=== PATIENT | female | born 1950 | race Hispanic/Latino ===

== ENCOUNTER 2017-09-09 04:10 | Emergency (ER) | payer MEDICARE ==
[2017-09-09 04:10] VITALS: BMI 35.7
[2017-09-09] MEDS ORDERED: Sodium Chloride 0.9% 1,000 ML IV ONE (04:28)
--- NOTE | 2017-09-09 04:28 | C.PDOC ---
History Of Present Illness patient whose past medical history includes COPD and CHF, presents to the ED complaining of right lower abdominal pain since earlier today at 07:30 PM associated with nausea. Patient denies vomiting, diarrhea, chest pain, shortness of breath, or other complaints. pt is on HD on -- Time Seen by Provider: 09/09/17 04:25 Chief Complaint (Nursing): Abdominal Pain History Per: Patient History/Exam Limitations: no limitations Onset/Duration Of Symptoms: Hrs Current Symptoms Are (Timing): Still Present Context: Other Severity: Moderate Pain Scale Rating Of: 4 Location Of Pain/Discomfort: RLQ Radiation Of Pain To:: None Quality Of Discomfort: Aching Exacerbating Factors: None Alleviating Factors: None Last Bowel Movement: Yesterday Recent travel outside of the [place]: No Additional History Per: Family Abnormal Vaginal Bleeding: No Past Medical History Reviewed: Historical Data, Nursing Documentation, Vital Signs Vital Signs: Last Vital Signs Temp 98.1 F 09/09/17 04:20 Pulse 90 09/09/17 04:20 Resp 18 09/09/17 04:20 BP 175/79 H 09/09/17 04:20 Pulse Ox 98 09/09/17 04:46 - Medical History PMH: Anemia, Anxiety, Atrial Fibrillation, CHF, COPD, Diabetes, Diverticulitis, HTN, Pneumonia (2011), End Stage Renal Disease, Chronic Kidney Disease, Sleep Apnea (on CPAP) - [facility] Procedures ASSISTANCE WITH RESPIRATORY VENTILATION, <24 HRS, CPAP (08/10/15) EXCISION OF DESCENDING COLON, ENDO, DIAGN (07/06/15) EXCISION OF RECTUM, ENDO, DIAGN (07/06/15) EXCISION OF SIGMOID COLON, ENDO (07/06/15) EXCISION OF STOMACH, ENDO, DIAGN (07/06/15) FLUOROSCOPY OF LEFT JUGULAR VEINS, GUIDANCE (07/06/15) HEMODIALYSIS (05/15/14) INFLUENZA VACCINATION (04/25/14) INSERT INFUSION DEV IN L INT JUGULAR VEIN, PERC (07/06/15) NEBULIZER THERAPY (05/15/14) NON-INVASIVE MECHANICAL VENTILATION (08/06/14) OCCUPATIONAL THERAPY (05/15/14) PERFORMANCE OF URINARY FILTRATION, MULTIPLE (07/06/15) PERFORMANCE OF URINARY FILTRATION, SINGLE (08/10/15) PHYSICAL THERAPY NEC (05/15/14) VENOUS CATHETERIZATION NEC (04/25/14) Family History: States: Unknown Family Hx - Social History Hx Tobacco Use: No Hx Alcohol Use: No Hx Substance Use: No - Immunization History Hx Tetanus Toxoid Vaccination: No Hx Influenza Vaccination: Yes Hx Pneumococcal Vaccination: Yes Review Of Systems Constitutional: Negative for: Fever ENT: Negative for: Throat Swelling Cardiovascular: Negative for: Chest Pain Respiratory: Negative for: Shortness of Breath Gastrointestinal: Positive for: Nausea, Abdominal Pain (right lower abdominal). Negative for: Vomiting Genitourinary: Negative for: Dysuria Musculoskeletal: Negative for: Back Pain Neurological: Negative for: Dizziness Physical Exam - Physical Exam Appears: Non-toxic, No Acute Distress Skin: Warm, Dry, Other (psoriasis) Head: Normacephalic Eye(s): bilateral: Normal Inspection Oral Mucosa: Moist Neck: Supple Chest: Symmetrical Cardiovascular: Rhythm Regular, No Murmur Respiratory: No Rales, No Rhonchi, No Wheezing Gastrointestinal/Abdominal: Bowel Sounds (active), Tenderness (right lower quadrant ), Distention, No Guarding, Hernia (large) Extremity: Normal ROM, Other (left forearm HD graft with good thrill and bruit) Extremity: Bilateral: Atraumatic Neurological/Psych: Oriented x3, Normal Speech, Normal Motor, Normal Sensation ED Course And Treatment - Laboratory Results Result Diagrams: 09/09/17 05:17 09/09/17 05:17 ECG: Interpreted By Me, Viewed By Me O2 Sat by Pulse Oximetry: 98 (room air) Pulse Ox Interpretation: Normal Disposition Counseled Patient/Family Regarding: Studies Performed, Diagnosis - Disposition Disposition Time: 04:25 Condition: FAIR Forms: [facility] (Faroese) - Clinical Impression Clinical Impression: Abdominal pain, ESRD (end stage renal disease) on dialysis - Scribe Statement The provider has reviewed the documentation as recorded by the Scribe Scribe Attestation: Zehra Brito MD Scribe Attestation: All medical record entries made by the Scribe were at my direction and personally dictated by me. I have reviewed the chart and agree that the record accurately reflects my personal performance of the history, physical exam, medical decision making, and the department course for this patient. I have also personally directed, reviewed, and agree with the discharge instructions and disposition. Physician Patient Turnover Patient Signed Over To: Lexi Araujo Handoff Comments: pending ct , re-evaluation and disposition
[2017-09-09 05:20] LABS: BASO # 0.1 K/uL (0.0-0.2); BASO % 0.9 % (0.0-2.0); EOS # 0.1 K/uL (0.0-0.7); EOS % 1.2 % (0.0-4.0); HEMOGLOBIN 11.2 g/dL (11.0-16.0); LYMPH % 10.1 % (20.0-40.0); MEAN CORPUSCULAR HEMOGLOBIN 32.5 pg (27.0-31.0); MEAN CORPUSCULAR HGB CONC 34.2 g/dL (33.0-37.0); MEAN PLATELET VOLUME 8.4 fL (7.2-11.7); MONO # 0.5 K/uL (0.0-0.8); MONO % 4.7 % (0.0-10.0); NEUT # 7.9 K/uL (1.8-7.0); NEUT % 83.1 % (50.0-75.0); RBC 3.46 Mil/uL (3.80-5.20); RED CELL DISTRIBUTION WIDTH 15.1 % (11.5-14.5); WHITE BLOOD COUNT 9.5 K/uL (4.8-10.8)
[2017-09-09] MEDS ORDERED: Sodium Chloride 0.9% 1,000 ML ONE (05:21)
[2017-09-09 05:28] LABS: PROTHROMBIN TIME 11.4 SECONDS (9.7-12.2)
[2017-09-09 05:36] LABS: ALB/GLOB RATIO 1.3 (1.0-2.1); ALBUMIN 4.3 g/dL (3.5-5.0); CALCIUM 8.9 mg/dl (8.6-10.4)
--- NOTE | 2017-09-09 07:41 | CT ---
EXAM: CT Abdomen and Pelvis Without Intravenous Contrast EXAM DATE/TIME: 09/09/2017 6:04 AM CLINICAL HISTORY: 67 years old, female; Pain; Abdominal pain; Localized; Right lower quadrant (rlq); Additional info: Rlq pain TECHNIQUE: Axial computed tomography images of the abdomen and pelvis without intravenous contrast. All CT scans at this facility use one or more dose reduction techniques, viz.: automated exposure control; ma/kV adjustment per patient size (including targeted exams where dose is matched to indication; i.e. head); or iterative reconstruction technique. Coronal and sagittal reformatted images were created and reviewed. COMPARISON: CT - ABD PELVIS W/O PO OR IV CONT 2015-08-09 22:36 FINDINGS: There is a small left pleural effusion with thin surrounding soft tissue rim and a small amount of calcification. As discussed in the prior report, the presence of a thin soft tissue rim is often associated with empyema. Clinical correlation recommended. The appearance is similar to prior study. There is a small amount of left lower lung consolidation with calcification also similar to prior study. There is a trace amount of right lower lung atelectasis decreased since prior study. There is a small pericardial effusion incompletely imaged however similar to prior study. The spleen is again seen to be enlarged. The liver, gallbladder, and pancreas appear grossly normal on this non-contrast study. There is mild bilateral perinephric stranding. There is fullness of the right renal pelvis new since prior. There are non obstructing renal calculi. There is a 3 mm calcification along the posterior aspect of the urinary bladder at midline new since prior likely a recently passed right sided calculi given the right pelvic dilation. Colonic diverticulosis is present. A normal appendix is identified axial images 112-125. IMPRESSION: Left pleural fluid and left lower lung consolidation similar to prior. Pericardial effusion similar to prior. Fullness of the right renal pelvis new since prior. Calculi along the posterior urinary bladder at midline, new since prior, likely recently passed.
[2017-09-09 08:23] VITALS: BP 131/61; PULSE 91; RESP 20; TEMP 98; O2SAT 96
== END 2017-09-09 08:50 | disposition home or self-care (01) ==
LOC: C.ER 04:10
DX: R10.31 Right lower quadrant pain (principal); N18.6 End stage renal disease; Z99.2 Dependence on renal dialysis
CPT/HCPCS: 74176; 80053; 83690; 85025; 85610; 85730; 96361; 96374; 96375; 99284; J2405; J7040

== ENCOUNTER 2018-06-19 05:49 | Inpatient (IN) | payer MEDICARE, BC ==
--- NOTE | 2018-06-19 05:58 | C.PDOC ---
History Of Present Illness Patient presents to the ER with a complaint of SOB for the past 2 days. She is a Sunday dialysis patient. Patient uses bipap at home, states she felt congested which prompted visit. She is currently speaking in complete sentences. Initially she was satting 88-89% on room air but with 2 liters o2 she is back at 100%. Denies chest pain, nausea, or vomiting. Time Seen by Provider: 06/19/18 05:58 History Per: Patient History/Exam Limitations: no limitations Onset/Duration Of Symptoms: Days (2) Current Symptoms Are (Timing): Still Present Initiating Event: Other (Not known) Quality: Other (Congested) Current Respiratory Medications: See Home Med List Severity: Moderate Pain Scale Rating Of: 4 Associated Symptoms: denies: Chest Pain, Other (Nausea, Vomiting) Recent travel outside of the [place]: No Past Medical History Reviewed: Historical Data, Nursing Documentation, Vital Signs - Medical History PMH: Anemia, Anxiety, Atrial Fibrillation, CHF, COPD, Diabetes, Diverticulitis, HTN, Pneumonia (2011), End Stage Renal Disease, Chronic Kidney Disease, Sleep Apnea (on CPAP) - [facility] Procedures ASSISTANCE WITH RESPIRATORY VENTILATION, <24 HRS, CPAP (08/10/15) EXCISION OF DESCENDING COLON, ENDO, DIAGN (07/06/15) EXCISION OF RECTUM, ENDO, DIAGN (07/06/15) EXCISION OF SIGMOID COLON, ENDO (07/06/15) EXCISION OF STOMACH, ENDO, DIAGN (07/06/15) FLUOROSCOPY OF LEFT JUGULAR VEINS, GUIDANCE (07/06/15) HEMODIALYSIS (05/15/14) INFLUENZA VACCINATION (04/25/14) INSERT INFUSION DEV IN L INT JUGULAR VEIN, PERC (07/06/15) NEBULIZER THERAPY (05/15/14) NON-INVASIVE MECHANICAL VENTILATION (08/06/14) OCCUPATIONAL THERAPY (05/15/14) PERFORMANCE OF URINARY FILTRATION, MULTIPLE (07/06/15) PERFORMANCE OF URINARY FILTRATION, SINGLE (08/10/15) PHYSICAL THERAPY NEC (05/15/14) VENOUS CATHETERIZATION NEC (04/25/14) Family History: States: No Known Family Hx - Social History Hx Tobacco Use: No Hx Alcohol Use: No Hx Substance Use: No - Immunization History Hx Tetanus Toxoid Vaccination: No Hx Influenza Vaccination: Yes Hx Pneumococcal Vaccination: Yes Review Of Systems Constitutional: Negative for: Fever, Chills Cardiovascular: Negative for: Chest Pain, Palpitations Respiratory: Positive for: Shortness of Breath, Other (Congested) Gastrointestinal: Negative for: Nausea, Vomiting Neurological: Negative for: Weakness, Numbness Physical Exam - Physical Exam Appears: Non-toxic Skin: Warm, Dry Head: Normacephalic Eye(s): bilateral: Normal Inspection Oral Mucosa: Moist Neck: Supple Chest: Symmetrical, No Tenderness Cardiovascular: Rhythm Regular Respiratory: Decreased Breath Sounds, Rales (At the bases), No Rhonchi, No Wheezing Gastrointestinal/Abdominal: Bowel Sounds (Good), Soft, No Tenderness, Other (Obese) Back: Normal Inspection Extremity: Pedal Edema (Trace), Other (Dialysis graft to left forearm with good thrill and bruit) Extremity: Bilateral: Atraumatic Pulses: Left Dorsalis Pedis: Normal, Right Dorsalis Pedis: Normal Neurological/Psych: Oriented x3 Gait: Steady ED Course And Treatment - Laboratory Results Result Diagrams: 06/19/18 06:27 06/19/18 06:27 ECG: Interpreted By Me, Viewed By Me ECG Rhythm: Sinus Rhythm (91), Nonspecific Changes O2 Sat by Pulse Oximetry: 89 Pulse Ox Interpretation: Abnormal (placed on 2l nc) - Radiology CXR: Interpreted by Me, Viewed By Me CXR Interpretation: Yes: Cardiomegaly, Other (left effusion, mild vasc congestion). No: Infiltrates, Fracture Progress Note: EKG, blood work, CXR, urinalysis, and flu swab ordered. Disposition Discussed With Dr.: Nii Lockett Comment: accepted the pt on his service and took over the care at 6:49 AM Doctor Will See Patient In The: Hospital Counseled Patient/Family Regarding: Studies Performed, Diagnosis - Disposition Referrals: Nii Lockett MD [Primary Care Provider] - Disposition: HOSPITALIZED Disposition Time: 05:58 Condition: FAIR - POA Present On Arrival: Poor Glycemic Control - Clinical Impression Clinical Impression: Dyspnea, Congestive heart failure, ESRD needing dialysis - Scribe Statement The provider has reviewed the documentation as recorded by the Scribe Tod Yip All medical record entries made by the Scribe were at my direction and personally dictated by me. I have reviewed the chart and agree that the record accurately reflects my personal performance of the history, physical exam, medical decision making, and the department course for this patient. I have also personally directed, reviewed, and agree with the discharge instructions and disposition.
[2018-06-19 05:59] VITALS: BMI 36.0
[2018-06-19 06:30] LABS: BASO # 0.1 K/uL (0.0-0.2); BASO % 0.8 % (0.0-2.0); EOS # 0.1 K/uL (0.0-0.7); EOS % 1.4 % (0.0-4.0); HEMOGLOBIN 9.4 g/dL (11.0-16.0); LYMPH % 14.4 % (20.0-40.0); MEAN CELL VOLUME 101.4 fL (81.0-99.0); MEAN CORPUSCULAR HEMOGLOBIN 32.8 pg (27.0-31.0); MEAN CORPUSCULAR HGB CONC 32.3 g/dL (33.0-37.0); MEAN PLATELET VOLUME 8.6 fL (7.2-11.7); MONO # 0.4 K/uL (0.0-0.8); NEUT # 5.5 K/uL (1.8-7.0); NEUT % 77.4 % (50.0-75.0); NRBC % 0.1 % (0.0-2.0); RBC 2.87 Mil/uL (3.80-5.20); RED CELL DISTRIBUTION WIDTH 16.4 % (11.5-14.5); WHITE BLOOD COUNT 7.1 K/uL (4.8-10.8)
[2018-06-19 06:38] LABS: INR 1.1; PROTHROMBIN TIME 12.5 SECONDS (9.7-12.2)
[2018-06-19 06:45] LABS: ALB/GLOB RATIO 1.5 (1.0-2.1); ALBUMIN 4.1 g/dL (3.5-5.0); CALCIUM 8.6 mg/dl (8.6-10.4)
[2018-06-19 06:51] LABS: ABG ALLEN TEST POS; ARTERIAL BLOOD GAS O2 SAT 97.9 % (95-98); ARTERIAL BLOOD GAS PCO2 64 mm/Hg (35-45); ARTERIAL BLOOD GAS PH 7.26 (7.35-7.45); ARTERIAL BLOOD GAS PO2 124 mm/Hg (80-100); ARTERIAL BLOOD GAS TCO2 30.7 mmol/L (22-28)
[2018-06-19 06:56] LABS: TROPONIN I 0.044 ng/mL (0.00-0.120)
--- NOTE | 2018-06-19 07:52 | RAD ---
Chest x-ray single frontal view HISTORY: Shortness of breath. COMPARISON: 08/09/2015 Findings: Moderate venous congestion. Small to moderate left pleural effusion. Patchy increased markings at the lung bases. Nodular density at the lateral aspect of the right midlung zone may represent confluence shadows with ribs and vessels. Biapical pleural thickening. Cardiomegaly. Atherosclerotic calcification at the aortic knob. Degenerative changes in the spine and shoulders. Impression: Moderate venous congestion. Small to moderate left pleural effusion. Patchy increased markings at the lung bases. Nodular density at the lateral aspect of the right midlung zone may represent confluence shadows with ribs and vessels. Biapical pleural thickening. Cardiomegaly. Atherosclerotic calcification at the aortic knob.
[2018-06-19] MEDS ORDERED: TADALAFIL 40 MG PO SCH (10:00)
[2018-06-19] MEDS ORDERED: Paricalcitol 2 mcg/ml Inj IV ONE (10:30)
[2018-06-19] MEDS ORDERED: Epoetin Alfa 10,000 unit/ml Dialysis IV ONE (10:30)
--- NOTE | 2018-06-19 11:59 | CP.PCM.CON ---
History of Present Illness - History of Present Illness History of Present Illness: pt is seen and examined, full consult is dictated #[id number] seen in hd, uf goal is 3- 3.5 lit Past Patient History - Infectious Disease Hx of Infectious Diseases: None - Past Medical History & Family History Past Medical History?: Yes - Past Social History Smoking Status: Former Smoker - CARDIAC Hx Cardiac Disorders: Yes Hx Atrial Fibrillation: Yes Hx Congestive Heart Failure: Yes Hx Hypertension: Yes - PULMONARY Hx Respiratory Disorders: Yes Hx Chronic Obstructive Pulmonary Disease (COPD): Yes Hx Pneumonia: Yes (2011) Hx Sleep Apnea: Yes (on CPAP) - NEUROLOGICAL Hx Neurological Disorder: No - HEENT Hx HEENT Problems: Yes Hx Cataracts: Yes (Bilateral cataract sx 2012) Other/Comment: Use glasses for reading/driving - RENAL Hx Chronic Kidney Disease: Yes Hx Dialysis: Yes Type of Dialysis Access: left forearm A/V shunt Date of Last Dialysis Treatment: 06/17/18 Hx Kidney Stones: Yes Hx Pyelonephritis: Yes Hx Renal Failure: Yes - ENDOCRINE/METABOLIC Hx Endocrine Disorders: Yes Hx Diabetes Mellitus Type 2: Yes - HEMATOLOGICAL/ONCOLOGICAL Hx Blood Disorders: Yes Hx Anemia: Yes - INTEGUMENTARY Hx Dermatological Problems: Yes Other/Comment: Rash on lower back just above sacrum - MUSCULOSKELETAL/RHEUMATOLOGICAL Hx Musculoskeletal Disorders: No Hx Falls: No - GASTROINTESTINAL Hx Gastrointestinal Disorders: Yes Hx Diverticulitis: Yes - GENITOURINARY/GYNECOLOGICAL Hx Genitourinary Disorders: Yes (renal failure started hd 04/27/14 at [facility]) - PSYCHIATRIC Hx Psychophysiologic Disorder: Yes Hx Anxiety: Yes (2004 when ) Hx Substance Use: No - SURGICAL HISTORY Hx Surgeries: Yes Hx Eye Surgery: Yes Hx Vascular Access Device: Yes (LEFT ARM) Other/Comment: Thoracentesis -2011; Herniated disk surgery 2003. AV Shunt - ANESTHESIA Hx Anesthesia: Yes Hx Anesthesia Reactions: No Hx Malignant Hyperthermia: No Meds Allergies/Adverse Reactions: Allergies Allergy/AdvReac Type Severity Reaction Status Date / Time penicillin V Allergy SHORTNESS Verified 06/19/18 05:59 OF BREATH shellfish derived Allergy SHORTNESS Verified 06/19/18 05:59 OF BREATH - Medications Medications: Current Medications Albuterol/Ipratropium (Duoneb 3 Mg/0.5 Mg (3 Ml) Ud) 3 ml INH RQ6 HUANG Heparin Sodium (Porcine) (Heparin) 5,000 units SC Q12 [facility] Home Med (Novolog Flexpen) 25 units SQ TID [facility] Home Med (Tadalafil [Adcirca]) 40 mg PO DAILY [facility] Azithromycin 500 mg/ Sodium (Chloride) 250 mls @ 250 mls/hr IVPB Q24H [facility]; Protocol Insulin Detemir (Levemir) 35 unit SC HS [facility] Pneumococcal Polyvalent Vaccine (Pneumovax 23 Vaccine) 0.5 ml IM .ONCE ONE Stop: 06/21/18 14:01 Rosuvastatin Calcium (Crestor) 10 mg PO DAILY [facility] Results - Vital Signs Recent Vital Signs: Last Vital Signs Temp 98 F 06/19/18 09:30 Pulse 84 06/19/18 09:30 Resp 17 06/19/18 11:00 BP 112/50 L 06/19/18 11:00 Pulse Ox 100 06/19/18 11:00 - Labs Result Diagrams: 06/19/18 06:27 06/19/18 06:27 Labs: Laboratory Results - last 24 hr 06/19/18 06/19/18 06/19/18 06:00 06:27 06:27 WBC 7.1 RBC 2.87 L Hgb 9.4 L Hct 29.1 L MCV 101.4 H D MCH 32.8 H MCHC 32.3 L RDW 16.4 H Plt Count 113 L MPV 8.6 Neut % (Auto) 77.4 H Lymph % (Auto) 14.4 L [place] % (Auto) 6.0 Eos % (Auto) 1.4 Baso % (Auto) 0.8 Neut # (Auto) 5.5 Lymph # (Auto) 1.0 [place] # (Auto) 0.4 Eos # (Auto) 0.1 Baso # (Auto) 0.1 PT 12.5 H INR 1.1 APTT 34 Puncture Site pCO2 pO2 HCO3 ABG pH ABG Total CO2 ABG O2 Saturation ABG Base Excess [place] Test ABG Potassium Glucose Lactate Liter Flow Sodium Potassium Chloride Carbon Dioxide Anion Gap BUN Creatinine Est GFR ( Amer) Est GFR (Non-Af Amer) POC Glucose (mg/dL) Random Glucose Calcium Magnesium Total Bilirubin AST ALT Alkaline Phosphatase Troponin I NT-Pro-B Natriuret Pep Total Protein Albumin Globulin Albumin/Globulin Ratio Arterial Blood Potassium Influenza Typ A,B (EIA) Negative for flu a/b 1206/19/18 06/19/18 06:27 06:30 11:41 WBC RBC Hgb Hct MCV MCH MCHC RDW Plt Count MPV Neut % (Auto) Lymph % (Auto) [place] % (Auto) Eos % (Auto) Baso % (Auto) Neut # (Auto) Lymph # (Auto) [place] # (Auto) Eos # (Auto) Baso # (Auto) PT INR APTT Puncture Site R rad pCO2 64 H pO2 124 H HCO3 25.0 ABG pH 7.26 L ABG Total CO2 30.7 H ABG O2 Saturation 97.9 ABG Base Excess 0.1 [place] Test Pos ABG Potassium 4.2 Glucose 113 H Lactate 0.7 Liter Flow 3.0 Sodium 138 140.0 Potassium 4.4 Chloride 98 103.0 Carbon Dioxide 24 Anion Gap 20 BUN 42 H Creatinine 6.8 H Est GFR ( Amer) 7 Est GFR (Non-Af Amer) 6 POC Glucose (mg/dL) 130 H Random Glucose 118 H Calcium 8.6 Magnesium 2.3 Total Bilirubin 0.8 AST 13 L ALT 17 Alkaline Phosphatase 147 H D Troponin I 0.0440 NT-Pro-B Natriuret Pep 67751 H Total Protein 6.8 Albumin 4.1 Globulin 2.7 Albumin/Globulin Ratio 1.5 Arterial Blood Potassium 4.2 Influenza Typ A,B (EIA)
[2018-06-19] MEDS: Azithromycin 500 MG in Sodium Chloride 0.9% 250 ML IVPB SCH (12:59)
[2018-06-19] MEDS: Albuterol-Ipratrop 3 mg / 0.5 (3 ml) UD INH SCH ×2 (13:38→19:31)
[2018-06-19] MEDS: (Novolog) Insulin Aspart, Recombinant 100 u/ml 10 ml vial SC SCH (17:36)
--- NOTE | 2018-06-19 18:12 | CP.PCM.HP ---
Past Patient History - Infectious Disease Hx of Infectious Diseases: None - Past Medical History & Family History Past Medical History?: Yes - Past Social History Smoking Status: Former Smoker - CARDIAC Hx Cardiac Disorders: Yes Hx Atrial Fibrillation: Yes Hx Congestive Heart Failure: Yes Hx Hypertension: Yes - PULMONARY Hx Respiratory Disorders: Yes Hx Chronic Obstructive Pulmonary Disease (COPD): Yes Hx Pneumonia: Yes (2011) Hx Sleep Apnea: Yes (on CPAP) - NEUROLOGICAL Hx Neurological Disorder: No - HEENT Hx HEENT Problems: Yes Hx Cataracts: Yes (Bilateral cataract sx 2012) Other/Comment: Use glasses for reading/driving - RENAL Hx Chronic Kidney Disease: Yes Hx Dialysis: Yes Type of Dialysis Access: left forearm A/V shunt Date of Last Dialysis Treatment: 06/17/18 Hx Kidney Stones: Yes Hx Pyelonephritis: Yes Hx Renal Failure: Yes - ENDOCRINE/METABOLIC Hx Endocrine Disorders: Yes Hx Diabetes Mellitus Type 2: Yes - HEMATOLOGICAL/ONCOLOGICAL Hx Blood Disorders: Yes Hx Anemia: Yes - INTEGUMENTARY Hx Dermatological Problems: Yes Other/Comment: Rash on lower back just above sacrum - MUSCULOSKELETAL/RHEUMATOLOGICAL Hx Musculoskeletal Disorders: No Hx Falls: No - GASTROINTESTINAL Hx Gastrointestinal Disorders: Yes Hx Diverticulitis: Yes - GENITOURINARY/GYNECOLOGICAL Hx Genitourinary Disorders: Yes (renal failure started hd 04/27/14 at [facility]) - PSYCHIATRIC Hx Psychophysiologic Disorder: Yes Hx Anxiety: Yes (2004 when ) Hx Substance Use: No - SURGICAL HISTORY Hx Surgeries: Yes Hx Eye Surgery: Yes Hx Vascular Access Device: Yes (LEFT ARM) Other/Comment: Thoracentesis -2011; Herniated disk surgery 2003. AV Shunt - ANESTHESIA Hx Anesthesia: Yes Hx Anesthesia Reactions: No Hx Malignant Hyperthermia: No Meds Allergies/Adverse Reactions: Allergies Allergy/AdvReac Type Severity Reaction Status Date / Time penicillin V Allergy SHORTNESS Verified 06/19/18 05:59 OF BREATH shellfish derived Allergy SHORTNESS Verified 06/19/18 05:59 OF BREATH Physical Exam - Constitutional Appears: Well - Head Exam Head Exam: ATRAUMATIC, NORMAL INSPECTION, NORMOCEPHALIC - Eye Exam Eye Exam: EOMI, Normal appearance, PERRL Pupil Exam: NORMAL ACCOMODATION, PERRL - ENT Exam ENT Exam: Mucous Membranes Moist, Normal Exam - Neck Exam Neck exam: Positive for: Normal Inspection - Respiratory Exam Respiratory Exam: Decreased Breath Sounds - Cardiovascular Exam Cardiovascular Exam: REGULAR RHYTHM, +S1, +S2 - GI/Abdominal Exam GI & Abdominal Exam: Diminished Bowel Sounds, Soft - Rectal Exam Rectal Exam: Deferred Results - Vital Signs Recent Vital Signs: Last Vital Signs Temp 98.9 F 06/19/18 15:30 Pulse 97 H 06/19/18 15:30 Resp 20 06/19/18 15:30 BP 104/52 L 06/19/18 15:30 Pulse Ox 94 L 06/19/18 15:30 - Labs Result Diagrams: 06/19/18 06:27 06/19/18 06:27 Labs: Laboratory Results - last 24 hr 06/19/18 06/19/18 06/19/18 06:00 06:27 06:27 WBC 7.1 RBC 2.87 L Hgb 9.4 L Hct 29.1 L MCV 101.4 H D MCH 32.8 H MCHC 32.3 L RDW 16.4 H Plt Count 113 L MPV 8.6 Neut % (Auto) 77.4 H Lymph % (Auto) 14.4 L [place] % (Auto) 6.0 Eos % (Auto) 1.4 Baso % (Auto) 0.8 Neut # (Auto) 5.5 Lymph # (Auto) 1.0 [place] # (Auto) 0.4 Eos # (Auto) 0.1 Baso # (Auto) 0.1 PT 12.5 H INR 1.1 APTT 34 Puncture Site pCO2 pO2 HCO3 ABG pH ABG Total CO2 ABG O2 Saturation ABG Base Excess [place] Test ABG Potassium Glucose Lactate Liter Flow Sodium Potassium Chloride Carbon Dioxide Anion Gap BUN Creatinine Est GFR ( Amer) Est GFR (Non-Af Amer) POC Glucose (mg/dL) Random Glucose Calcium Magnesium Total Bilirubin AST ALT Alkaline Phosphatase Troponin I NT-Pro-B Natriuret Pep Total Protein Albumin Globulin Albumin/Globulin Ratio Arterial Blood Potassium Influenza Typ A,B (EIA) Negative for flu a/b 06/19/18 06/19/18 06/19/18 06:27 06:30 11:41 WBC RBC Hgb Hct MCV MCH MCHC RDW Plt Count MPV Neut % (Auto) Lymph % (Auto) [place] % (Auto) Eos % (Auto) Baso % (Auto) Neut # (Auto) Lymph # (Auto) [place] # (Auto) Eos # (Auto) Baso # (Auto) PT INR APTT Puncture Site R rad pCO2 64 H pO2 124 H HCO3 25.0 ABG pH 7.26 L ABG Total CO2 30.7 H ABG O2 Saturation 97.9 ABG Base Excess 0.1 [place] Test Pos ABG Potassium 4.2 Glucose 113 H Lactate 0.7 Liter Flow 3.0 Sodium 138 140.0 Potassium 4.4 Chloride 98 103.0 Carbon Dioxide 24 Anion Gap 20 BUN 42 H Creatinine 6.8 H Est GFR ( Amer) 7 Est GFR (Non-Af Amer) 6 POC Glucose (mg/dL) 130 H Random Glucose 118 H Calcium 8.6 Magnesium 2.3 Total Bilirubin 0.8 AST 13 L ALT 17 Alkaline Phosphatase 147 H D Troponin I 0.0440 NT-Pro-B Natriuret Pep 84501 H Total Protein 6.8 Albumin 4.1 Globulin 2.7 Albumin/Globulin Ratio 1.5 Arterial Blood Potassium 4.2 Influenza Typ A,B (EIA) 06/19/18 16:22 WBC RBC Hgb Hct MCV MCH MCHC RDW Plt Count MPV Neut % (Auto) Lymph % (Auto) [place] % (Auto) Eos % (Auto) Baso % (Auto) Neut # (Auto) Lymph # (Auto) [place] # (Auto) Eos # (Auto) Baso # (Auto) PT INR APTT Puncture Site pCO2 pO2 HCO3 ABG pH ABG Total CO2 ABG O2 Saturation ABG Base Excess [place] Test ABG Potassium Glucose Lactate Liter Flow Sodium Potassium Chloride Carbon Dioxide Anion Gap BUN Creatinine Est GFR ( Amer) Est GFR (Non-Af Amer) POC Glucose (mg/dL) 254 H Random Glucose Calcium Magnesium Total Bilirubin AST ALT Alkaline Phosphatase Troponin I NT-Pro-B Natriuret Pep Total Protein Albumin Globulin Albumin/Globulin Ratio Arterial Blood Potassium Influenza Typ A,B (EIA)
--- NOTE | 2018-06-19 21:06 | CARD ---
APPROVED REPORT Date of service: 06/19/2018 EKG Measurement Heart [id number] <Conclusion> Normal sinus rhythm with sinus arrhythmia Normal ECG
[2018-06-19] MEDS: Insulin Detemir 100 units/ml Vial (Levemir) SC SCH (22:25)
[2018-06-20] MEDS: Albuterol-Ipratrop 3 mg / 0.5 (3 ml) UD INH SCH ×4 (01:12→20:45)
--- NOTE | 2018-06-20 07:53 | CON ---
DATE: 06/19/2018 RENAL CONSULTATION LOCATION: The patient is located in room 669, bed B. REQUESTED BY: Steven Lockett MD REASON FOR RENAL CONSULTATION: End-stage renal disease, shortness of breath, and cough associated with light green sputum now for 2 to 3 days. SUBJECTIVE: Mrs. Ny is a 68-year-old elderly female with a past medical history significant for longstanding hypertension, diabetes for more than 20 years, COPD, severe pulmonary hypertension, end-stage renal disease, on hemodialysis three times a week; Sunday, Sunday, and Sunday recently came back from vacation for one month who presented to the emergency room with chief complaints of shortness of breath and hypoxia, saturation about 80 to 85, and also complains of cough associated with light green sputum and shortness of breath for the last 2 to 3 days, runny nose, and sore throat. Denies any fever. Denies any chest pain or palpitation. The patient complains of swelling of the legs. No nausea. No vomiting or diarrhea. No dizziness. PAST MEDICAL HISTORY: Significant for longstanding hypertension, diabetes, end-stage renal disease, COPD, and pulmonary hypertension. Also bilateral pleurodesis in the past. PAST SURGICAL HISTORY: Status post left forearm AV fistula. ALLERGIES: ALLERGIC TO PENICILLIN AND SHELLFISH. SOCIAL HISTORY: The patient was an ex-smoker, quit about more than 10 years ago. No alcohol. No drug abuse. FAMILY HISTORY: Not significant. CURRENT MEDICATIONS: Include as follows: Azithromycin 500 mg every 24 hours, Crestor 10 mg p.o. daily, DuoNeb inhaler every 6 hours, subcu heparin 5000 units every 12 hours, Levemir 35 units subcu at bedtime, NovoLog 5 units subcu, pneumococcal vaccine x1, and Renvela 2400 mg p.o. t.i.d. REVIEW OF SYSTEMS: Significant for shortness of breath, runny nose, sore throat, and cough associated with light green sputum for few days, and also edema on the legs. All other review of systems are reviewed and are negative. PHYSICAL EXAMINATION: VITAL SIGNS: As follows: Blood pressure this morning is 162/75, pulse 89, respirations 18, temperature 97.5, and saturation 89%. Height 5 feet 7 inches, and weight is 105.1 kg. GENERAL: Mrs. Ny is a 68-year-old elderly obese female, well-built, well-nourished, not in acute distress. HEENT: Pupils are normal and reactive to light and accommodation. Conjunctivae pink. Sclerae anicteric. Tongue is moist. NECK: Trachea is midline. LUNGS: Symmetric on both sides. Bilateral breath sounds present. Occasional basal crackles present. CARDIOVASCULAR SYSTEM: [place] at the fifth intercostal space midclavicular line. S1 and S2 audible. No murmur. No gallop. ABDOMEN: Normal in appearance. Slightly protuberant. Soft, tympanitic. No guarding. No rigidity. No hepatosplenomegaly. CENTRAL NERVOUS SYSTEM: The patient is alert, awake, and oriented x3. Nonfocal neuro examination. Cranial nerves II through XII grossly intact. Sensory and motor system, within normal limits. EXTREMITIES: No cyanosis. No clubbing. The patient has 1 to 2+ edema in both lower extremities. LABORATORY DATA: Include as follows: As of 06/19/2018; WBC 7.1, hemoglobin 9.4, hematocrit is 29.1, and platelet 113. PT 12.5, PTT 34. ABG; pH 7.26, pCO2 of 64, pO2 of 124, bicarb is 25, and saturation 97.9 on 3 L nasal cannula. Other laboratory data; sodium 138, potassium 4.4, chloride 98, CO2 of 24, BUN 42, creatinine 6.8, glucose 118, calcium 8.6, magnesium 2.3. Total bili 0.8, AST 13, ALT 17, alkaline phosphatase 147, troponin 0.044, proBNP is 14,800, total protein 6.8, and albumin is 4.1. Influenza A and B antibodies are negative. Other reports, chest x-ray, impression; moderate venous congestion, some [id number] left pleural effusion, patchy increased marking at the lung bases, nodular density at the lateral aspect of right middle lung zone, may represent confluent shadows with ribs and vessels, biapical pleural thickening, cardiomegaly, atherosclerotic calcification of the aortic valve. ASSESSMENT AND PLAN: In summary, Mrs. Ny is a 68-year-old elderly obese female with hypertension, diabetes, chronic obstructive pulmonary disease, end-stage renal disease, severe pulmonary hypertension with cough, shortness of breath, runny nose, and sore throat for few days. 1. End-stage renal disease. Continue hemodialysis three times a week; Sunday, Sunday, and Sunday. The patient underwent hemodialysis this morning, had ultrafiltration about 3.3 L. 2. Chronic obstructive pulmonary disease exacerbation, most likely secondary to upper respiratory infections symptoms. 3. Hypertension. 4. Diabetes. 5. Rule out acute bronchitis versus upper respiratory infections. We will follow with you. Thank you for allowing me to participate in your patient's care. Restrict fluids to 1 L per day. Continue IV antibiotics and Zithromax as per the primary team. Adia Franco MD
[2018-06-20] MEDS: (Novolog) Insulin Aspart, Recombinant 100 u/ml 10 ml vial SC SCH ×3 (10:03→17:11)
[2018-06-20] MEDS: Azithromycin 500 MG in Sodium Chloride 0.9% 250 ML IVPB SCH (14:31)
--- NOTE | 2018-06-20 17:35 | CP.PCM.PN ---
Subjective - Date & Time of Evaluation Date of Evaluation: 06/20/18 Time of Evaluation: 10:00 - Subjective Subjective: clinically same Objective - Vital Signs/Intake and Output Vital Signs (last 24 hours): Temp Pulse Resp BP Pulse Ox 98.6 F 73 20 104/63 99 06/20/18 16:50 06/20/18 16:50 06/20/18 16:50 06/20/18 16:50 06/20/18 16:50 Intake and Output: 06/20/18 06/20/18 06:59 18:59 Intake Total 400 Balance 400 - Medications Medications: Current Medications Albuterol/Ipratropium (Duoneb 3 Mg/0.5 Mg (3 Ml) Ud) 3 ml INH RQ6 [facility] Last Admin: 06/20/18 13:14 Dose: 3 ml Heparin Sodium (Porcine) (Heparin) 5,000 units SC Q12 [facility] Last Admin: 06/20/18 10:05 Dose: Not Given Home Med (Tadalafil [Adcirca]) 40 mg PO DAILY [facility] Azithromycin 500 mg/ Sodium (Chloride) 250 mls @ 250 mls/hr IVPB Q24H [facility]; Protocol Last Admin: 06/20/18 14:31 Dose: 250 mls/hr Insulin Aspart (Novolog) 5 unit SC TIDAC [facility] Last Admin: 06/20/18 17:11 Dose: 5 u Insulin Detemir (Levemir) 35 unit SC [facility] Last Admin: 06/19/18 22:25 Dose: 35 u Pneumococcal Polyvalent Vaccine (Pneumovax 23 Vaccine) 0.5 ml IM .ONCE ONE Stop: 06/21/18 14:01 Rosuvastatin Calcium (Crestor) 10 mg PO [facility] Sevelamer Carbonate (Renvela) 2,400 mg PO [facility] Last Admin: 06/20/18 17:10 Dose: 2,400 mg - Labs Labs: 06/19/18 06:27 06/19/18 06:27 PT 12.5 SECONDS (9.7-12.2) H 06/19/18 06:27 INR 1.1 06/19/18 06:27 APTT 34 SECONDS (21-34) 06/19/18 06:27 - Constitutional Appears: Well - Head Exam Head Exam: ATRAUMATIC, NORMAL INSPECTION, NORMOCEPHALIC - Eye Exam Eye Exam: EOMI, Normal appearance, PERRL Pupil Exam: NORMAL ACCOMODATION, PERRL - ENT Exam ENT Exam: Mucous Membranes Moist, Normal Exam - Neck Exam Neck Exam: Full ROM, Normal Inspection. absent: Lymphadenopathy - Respiratory Exam Respiratory Exam: Decreased Breath Sounds - Cardiovascular Exam Cardiovascular Exam: REGULAR RHYTHM, +S1, +S2 - GI/Abdominal Exam GI & Abdominal Exam: Soft, Diminished Bowel Sounds - Rectal Exam Rectal Exam: Deferred
[2018-06-20] MEDS: Insulin Detemir 100 units/ml Vial (Levemir) SC SCH (21:42)
[2018-06-21] MEDS: Albuterol-Ipratrop 3 mg / 0.5 (3 ml) UD INH SCH ×3 (02:37→13:41)
[2018-06-21] MEDS: (Novolog) Insulin Aspart, Recombinant 100 u/ml 10 ml vial SC SCH ×2 (08:52→12:05)
--- NOTE | 2018-06-21 09:14 | CP.PCM.PN ---
Subjective - Date & Time of Evaluation Date of Evaluation: 06/21/18 Time of Evaluation: 08:05 - Subjective Subjective: Resident Progress Note for Dr. Lockett Patient seen and examined at bedside. No acute events reported overnight. Patient is aware of dialysis today. She reports improving coughs and shortness of breath. Patient denies fever, chills, dizziness, chest pain, nausea, vomiting, diarrhea, or urinary symptoms. Objective - Vital Signs/Intake and Output Vital Signs (last 24 hours): Temp Pulse Resp BP Pulse Ox 98.0 F 85 20 114/66 98 06/21/18 07:00 06/21/18 07:00 06/21/18 07:00 06/21/18 07:00 06/21/18 07:00 - Medications Medications: Current Medications Albuterol/Ipratropium (Duoneb 3 Mg/0.5 Mg (3 Ml) Ud) 3 ml INH RQ6 [facility] Last Admin: 06/21/18 08:41 Dose: Not Given Heparin Sodium (Porcine) (Heparin) 5,000 units SC Q12 [facility] Last Admin: 06/20/18 20:59 Dose: Not Given Home Med (Tadalafil [Adcirca]) 40 mg PO DAILY [facility] Azithromycin 500 mg/ Sodium (Chloride) 250 mls @ 250 mls/hr IVPB Q24H [facility]; Protocol Last Admin: 06/20/18 14:31 Dose: 250 mls/hr Insulin Aspart (Novolog) 5 unit SC TIDAC [facility] Last Admin: 06/21/18 08:52 Dose: 5 units Insulin Detemir (Levemir) 35 unit SC HS [facility] Last Admin: 06/20/18 21:42 Dose: 35 u Pneumococcal Polyvalent Vaccine (Pneumovax 23 Vaccine) 0.5 ml IM .ONCE ONE Stop: 06/21/18 14:01 Rosuvastatin Calcium (Crestor) 10 mg PO HS [facility] Last Admin: 06/20/18 21:41 Dose: 10 mg Sevelamer Carbonate (Renvela) 2,400 mg PO TIDCC [facility] Last Admin: 06/21/18 08:53 Dose: 2,400 mg - Labs Labs: 06/19/18 06:27 06/19/18 06:27 PT 12.5 SECONDS (9.7-12.2) H 06/19/18 06:27 INR 1.1 06/19/18 06:27 APTT 34 SECONDS (21-34) 06/19/18 06:27 - Constitutional Appears: Well, Non-toxic, No Acute Distress - Head Exam Head Exam: ATRAUMATIC, NORMAL INSPECTION, NORMOCEPHALIC - Eye Exam Eye Exam: EOMI, Normal appearance, PERRL Pupil Exam: NORMAL ACCOMODATION - ENT Exam ENT Exam: Mucous Membranes Moist, Normal Exam - Neck Exam Neck Exam: Full ROM, Normal Inspection - Respiratory Exam Respiratory Exam: NORMAL BREATHING PATTERN. absent: Wheezes, Respiratory Distress - Cardiovascular Exam Cardiovascular Exam: REGULAR RHYTHM, +S1, +S2. absent: Murmur - GI/Abdominal Exam GI & Abdominal Exam: Soft, Normal Bowel Sounds. absent: Tenderness - Extremities Exam Extremities Exam: Full ROM, Normal Capillary Refill Additional comments: left forearm graft good thrill - Neurological Exam Neurological Exam: Alert, Awake, Oriented x3 - Psychiatric Exam Psychiatric exam: Normal Affect, Normal Mood - Skin Skin Exam: Dry, Normal Color, Warm Assessment and Plan - Assessment and Plan (Free Text) Assessment: ESRD HD MWF -Nephrology Dr. Franco's recommendations -HD today, continue outpatient HD after hospital discharge -1L fluid restriction -Procrit [id number] -Renvela 2400mg TID -Paricaltiol 4mcg IV URI, improving -Duoneb 3ml INH Q6 -Zithromycin 250mg po for 3 more days DM -Levemir 35 units SC [facility] -Novolog 5 units SC TID [facility] -Crestor 10mg HS Dispo: Patient medically stable to be discharged home after HD today All management per Dr. Lockett
--- NOTE | 2018-06-21 09:18 | CP.PCM.PN ---
Subjective - Date & Time of Evaluation Date of Evaluation: 06/21/18 Time of Evaluation: :18 - Subjective Subjective: pt is seen and examined during hd, uf 3 lit, follow up consult is dictated#[id number] Objective - Vital Signs/Intake and Output Vital Signs (last 24 hours): Temp Pulse Resp BP Pulse Ox 98.0 F 85 20 114/66 98 06/21/18 07:00 06/21/18 07:00 06/21/18 07:00 06/21/18 07:00 06/21/18 07:00 - Medications Medications: Current Medications Albuterol/Ipratropium (Duoneb 3 Mg/0.5 Mg (3 Ml) Ud) 3 ml INH RQ6 [facility] Last Admin: 06/21/18 08:41 Dose: Not Given Heparin Sodium (Porcine) (Heparin) 5,000 units SC Q12 [facility] Last Admin: 06/20/18 20:59 Dose: Not Given Home Med (Tadalafil [Adcirca]) 40 mg PO DAILY [facility] Azithromycin 500 mg/ Sodium (Chloride) 250 mls @ 250 mls/hr IVPB Q24H [facility]; Protocol Last Admin: 06/20/18 14:31 Dose: 250 mls/hr Insulin Aspart (Novolog) 5 unit SC TIDAC [facility] Last Admin: 06/21/18 08:52 Dose: 5 units Insulin Detemir (Levemir) 35 unit SC HS [facility] Last Admin: 06/20/18 21:42 Dose: 35 u Pneumococcal Polyvalent Vaccine (Pneumovax 23 Vaccine) 0.5 ml IM .ONCE ONE Stop: 06/21/18 14:01 Rosuvastatin Calcium (Crestor) 10 mg PO HS [facility] Last Admin: 06/20/18 21:41 Dose: 10 mg Sevelamer Carbonate (Renvela) 2,400 mg PO TIDCC [facility] Last Admin: 06/21/18 08:53 Dose: 2,400 mg - Labs Labs: 06/19/18 06:27 06/19/18 06:27 PT 12.5 SECONDS (9.7-12.2) H 06/19/18 06:27 INR 1.1 06/19/18 06:27 APTT 34 SECONDS (21-34) 06/19/18 06:27
[2018-06-21 10:06] VITALS: O2SAT 100
[2018-06-21] MEDS: Azithromycin 500 MG in Sodium Chloride 0.9% 250 ML IVPB SCH (10:20)
[2018-06-21 13:31] VITALS: BP 159/69; PULSE 69; RESP 20; TEMP 97.9
[2018-06-21] MEDS ORDERED: Pneumococcal 23-Valent Vaccine IM ONE (14:00)
--- NOTE | 2018-06-22 02:35 | PN ---
DATE: 06/21/2018 FOLLOWUP RENAL CONSULTATION LOCATED: Room 669, bed B. REQUESTED BY: Steven Lockett MD REASON FOR FOLLOWUP: End-stage renal disease, continuation of the hemodialysis. SUBJECTIVE: Mrs. Ny is a 68-year-old elderly obese female with a past medical history significant for longstanding hypertension, diabetes, chronic obstructive pulmonary disease, pulmonary hypertension, end-stage renal disease, congestive heart failure, who recently came back from vacation after one month from [place]. The patient was admitted with complaints of cough, runny nose, sore throat, and shortness of breath for 2-3 days prior to the admission. The patient was seen and examined during hemodialysis today. The patient still complains of mild shortness of breath but feels much better. No chest pain. No palpitation. No fever. No abdominal pain. No nausea, vomiting, diarrhea. The patient still has swelling of the legs. Her ultrafiltration goal is 3-4 liters as tolerated. The patient completed hemodialysis with ultrafiltration of about 3 liters this afternoon. PHYSICAL EXAMINATION: VITAL SIGNS: As follows: Blood pressure 126/59, pulse 69, respirations 20, temperature 97.9, saturation 99%. GENERAL: Mrs. Ny is a 68-year-old elderly obese female, well built, well nourished, not in acute distress. HEENT: Pupils normal, reactive to light and accommodation. Conjunctivae pink. Sclerae anicteric. Tongue is moist and trachea is midline. LUNGS: Symmetric on both sides. Bilateral breath sounds present. Occasional basal crackles present. CARDIOVASCULAR SYSTEM: [place] at the fifth intercostal space, midclavicular line. S1 and S2 audible. No murmur or gallop. ABDOMEN: Protuberant, soft, tympanic. No guarding. No rigidity. No hepatosplenomegaly. CENTRAL NERVOUS SYSTEM: The patient is alert, awake, oriented x3. Nonfocal neuro examination. Cranial nerves II-XII grossly intact. Sensory and motor system is within normal limits. EXTREMITIES: No cyanosis and no clubbing. The patient has a 1-2+ edema in both lower extremities. CURRENT MEDICATIONS: Include as follows: DuoNeb inhaler every 6 hours, heparin 5000 units every 12 hours, Lasix 40 mg p.o. daily and azithromycin 500 mg daily, NovoLog 5 units subcutaneously t.i.d. and Levemir 35 units subcutaneously at bedtime, pneumococcal vaccine x1, Crestor 10 mg p.o. x1 and Renvela 800 mg 3 tablets p.o. t.i.d. LABORATORY DATA: No new labs are available, and Accu-Cheks this morning 120 and 119. ASSESSMENT: In summary, Mrs. Ny is a 68-year-old elderly female with history of hypertension, diabetes, chronic obstructive pulmonary disease, pulmonary hypertension, congestive heart failure, end-stage renal disease, was admitted with cough, shortness of breath, sore throat, and runny nose for 2-3 days. 1. End-stage renal disease. Continue hemodialysis 3 times a week, Sunday, Sunday, and Sunday, and the patient had ultrafiltration about 3 liters today. 2. Hypertension. 3. Exacerbation of chronic obstructive pulmonary disease, most likely secondary to upper respiratory infection. 4. Diabetes. PLAN: Continue antibiotics as per the primary team and will follow up at outpatient hemodialysis unit. The patient is stable from the renal standpoint to discharge. Case discussed with the resident this afternoon. Thank you for allowing me to participate in your patient's care. Adia Franco MD
== END 2018-06-21 15:43 | disposition home or self-care (01) | DRG 291 ==
LOC: C.ER 05:49 → SUPCPDRO 05:49 → C.6T 06:47
PROVIDERS: ADMIT Internal Medicine Nephrology; ATTEND Internal Medicine Nephrology
PROC: 5A1D70Z Performance of Urinary Filtration, Intermittent, Less than 6 Hours Per Day (ICD-10-PCS; principal; 2018-06-21)
DX: I13.2 Hypertensive heart and chronic kidney disease with heart failure and with stage 5 chronic kidney disease, or end stage renal disease (principal); N18.6 End stage renal disease; J44.1 Chronic obstructive pulmonary disease with (acute) exacerbation; E78.5 Hyperlipidemia, unspecified; E11.22 Type 2 diabetes mellitus with diabetic chronic kidney disease; G47.30 Sleep apnea, unspecified; I48.91 Unspecified atrial fibrillation; I50.9 Heart failure, unspecified; R09.02 Hypoxemia; Z79.4 Long term (current) use of insulin; Z99.2 Dependence on renal dialysis; I27.20 Pulmonary hypertension, unspecified; J06.9 Acute upper respiratory infection, unspecified

== ENCOUNTER 2018-09-18 07:06 | Observation (INO) | payer MEDICARE, BC | END 2018-09-21 20:18 | disposition home or self-care (01) | LOC: C.ER 07:06 → C.9E 08:25 → C.6T 14:45 ==